=== PATIENT | male | born 1950 | race American Indian/Alaskan Native ===

== ENCOUNTER 2016-12-19 06:24 | Day surgery (SDC) | payer MEDICARE, OTHER ==
[2016-12-19] MEDS ORDERED: ECOTRIN PO ONE ×2 (06:39→06:46)
[2016-12-19] MEDS ORDERED: NACL 0.9% 500 ML 500 ML ONE (06:40)
[2016-12-19] MEDS ORDERED: NACL 0.9% 500 ML 500 ML IV SCH (07:00)
[2016-12-19 07:10] LABS: Basophils % (Auto) 0.4 % (0.0-1.8); Hematocrit 37.5 % (35.5-45.6); Hemoglobin 12.8 gm/dl (11.8-15.2); Mean Corpuscular HGB Conc 34 % (32-34); Mean Corpuscular Hemoglobin 31 pg (28-32); Mean Corpuscular Volume 91 fl (84-94); Platelet Count 175 K/mm3 (140-440); Red Blood Count 4.14 M/mm3 (3.65-5.03); Red Cell Distribution Width 13.3 % (13.2-15.2); White Blood Count 6.6 K/mm3 (4.5-11.0)
[2016-12-19 07:21] LABS: INR 1.11 (0.87-1.13)
[2016-12-19 07:22] LABS: Anion Gap 17 mmol/L; BUN/Creatinine Ratio 11.66; Blood Urea Nitrogen 14 mg/dL (9-20); Calcium 8.9 mg/dL (8.4-10.2); Carbon Dioxide 25 mmol/L (22-30); Glucose 95 mg/dL (75-100); Potassium 3.9 mmol/L (3.6-5.0); Sodium 140 mmol/L (137-145)
[2016-12-19] MEDS ORDERED: HEPARIN/NS 5000 UNIT/500ML(CATH LAB) 1,000 ML IR ONE (08:20)
[2016-12-19] MEDS: VERSED ONE ×2 (08:37→08:52)
[2016-12-19] MEDS: SUBLIMAZE ONE ×2 (08:38→08:52)
[2016-12-19] MEDS: XYLOCAINE 2% INFILTRATI ONE ×2 (08:39→08:53)
[2016-12-19] MEDS: HEPARIN 10,000 UNITS/10 ML ONE ×2 (08:40→08:55)
[2016-12-19] MEDS: CALAN ONE ×2 (08:40→08:55)
[2016-12-19] MEDS: NITROGLYCERIN SYRINGE 3 ML ONE ×2 (08:41→08:55)
--- NOTE | 2016-12-19 09:39 | Cardiac Catherization Report ---
LEFT HEART CATHETERIZATION ORDERING PHYSICIAN: Jan Kc MD INDICATION FOR PROCEDURE: Chest pain and syncope. PROCEDURES PERFORMED: 1. Selective left and right coronary angiography. 2. Left ventriculography. DESCRIPTION OF PROCEDURE: After obtaining written consent, the patient was draped using sterile technique. A 2% lidocaine was injected into the right wrist. A 5-Dominican vascular sheath was inserted into the right radial artery. A 5-Dominican JL3.5 catheter was used to selectively engage the left coronary artery. A 5-Dominican multipurpose catheter was used to selectively engage the right coronary artery. A 5-Dominican 3DRC catheter was used to hand inject the left ventriculogram. No complications occurred during the procedure. Hemostasis was achieved at the end of the procedure using manual pressure. Specimen removed was none. FINDINGS: HEMODYNAMICS: Aortic pressure was 116/70, left ventricular systolic pressure was 116 mmHg. Left ventricular end-diastolic pressure was 14 mmHg. There was no significant gradient across the left ventricular outflow tract. CARDIAC STRUCTURES: The left ventricle is normal in size and systolic function. The left ventricular ejection fraction is estimated at 60%. CORONARY ANATOMY: 1. This is a right dominant circulation. 2. The left main has mild luminal irregularities. 3. The left anterior descending artery has mild luminal irregularities with less than or equal to 25% stenosis. There is evidence of a focal 90% stenosis of the very distal LAD: This is a small caliber vessel that is not amenable to PCI. 4. The left circumflex artery has mild luminal irregularities with less than or equal to 25% luminal stenosis. 5. The right coronary artery also has mild luminal irregularities with less than or equal to 25% stenosis. There is evidence of a focal stenosis of the PDA at the ostium. The right coronary artery originates anteriorly from the right coronary cusp. IMPRESSION: 1. Nonobstructive coronary artery disease. There is a very distal LAD focal 90% stenosis, not amenable to PCI due to the vessel diameter distally. 2. Normal left ventricular size and systolic function. 3. Normal left ventricular end-diastolic pressure. RECOMMENDATIONS: Medical therapy with risk factor modifications, and follow up with referring career counselor. JOB# [id number] KATLIN/JONATHAN
--- NOTE | 2016-12-19 12:34 | Short Stay Summary ---
Short Stay Documentation Date of service: 12/19/16 - History H&P: obtained from office - Allergies and Medications Current Medications: Allergies No Known Allergies Allergy (Verified 12/19/16 06:41) Home Medications Medication Instructions Recorded Confirmed Last Taken Type Amlodipine Besylate [Amlodipine 5 mg PO DAILY 12/19/16 12/19/16 12/18/16 History Besylate] 5mg Aspirin EC [Aspirin Enteric Coated 81 mg PO DAILY 12/19/16 12/19/16 12/18/16 History TAB] 81mg Isosorbide Dinitrate [Isosorbide 30 mg PO DAILY 12/19/16 12/19/16 12/18/16 History Dinitrate] 30mg Pravastatin Sodium [Pravastatin] 80 mg PO DAILY 12/19/16 12/19/16 12/18/16 History Active Medications Sodium Chloride (Nacl 0.9% 500 Ml) 500 mls @ 50 mls/hr IV DIRECT JESENIA Stop: 12/19/16 16:59 - Physical exam General appearance: no acute distress Integumentary: no rash HEENT: Atraumatic Lungs: Clear to auscultation Breasts: deferred Heart: Regular rate Gastrointestinal: normal Male Genitourinary: deferred Female Genitourinary: deferred Rectal Exam: deferred Extremities: no ischemia Neurological: Normal gait - Brief post op/procedure progress note Date of procedure: 12/19/16 Pre-op diagnosis: Syncope, abnormal MPI Post-op diagnosis: same Procedure: LHC, LV gram Anesthesia: MAC Findings: See report Surgeon: NOLBERTO MEREDITH Estimated blood loss: none Pathology: none Condition: stable - Hospital course Hospital course: Uneventful - Disposition Condition at discharge: Good Disposition: DISCHARGED TO HOME OR SELFCARE Short Stay Discharge Plan Activity: advance as tolerated Weight Bearing Status: Partial Weight Bearing (for 2 days) Diet: low fat, low cholesterol, low salt Follow up with: COLBY APONTE MD [Staff Physician] - 7 Days JEFF COFFMAN MD [Primary Care Provider] - 7 Days Forms: CardCath PCI D/C Instructions
[2016-12-19 12:38] VITALS: BP 108/78
== END 2016-12-19 13:05 | disposition home or self-care (01) ==
LOC: OPU 06:24
PROVIDERS: ATTEND Internal Medicine
DX: I25.10 Atherosclerotic heart disease of native coronary artery without angina pectoris (principal); I10 Essential (primary) hypertension; E78.5 Hyperlipidemia, unspecified; I34.1 Nonrheumatic mitral (valve) prolapse; Z72.89 Other problems related to lifestyle; Z87.891 Personal history of nicotine dependence
CPT/HCPCS: 36415; 80048; 85025; 85610; 85730; 93005; 93010; 93458; C1894; J1644; J2250; J3010; J7040; Q9967